=== PATIENT | male | born 1980 | race Caucasian/White ===

== ENCOUNTER 2017-01-08 15:13 | Emergency (ER) | payer OTHER ==
[2017-01-08 15:22] VITALS: RESP 16; O2SAT 97
--- NOTE | 2017-01-08 16:45 | CPEKG ---
Heart Rate: 72 RR Interval: 833 P-R Interval: 112 QRSD Interval: 98 QT Interval: 372 QTC Interval: 408 P [place]: 72 QRS [place]: 65 T Wave [place]: 52 EKG Severity - ABNORMAL ECG - EKG Impression: SINUS RHYTHM EKG Impression: LEFT VENTRICULAR HYPERTROPHY EKG Impression: ST ELEV, PROBABLE NORMAL EARLY REPOL PATTERN Electronically Signed By: Sagar Wick 08-Jan-2017 21:09:31
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
[2017-01-08 18:11] VITALS: BP 124/86; PULSE 66; TEMP 98.8
== END 2017-01-08 18:10 | disposition home or self-care (01) ==
DX: T75.4XXA Electrocution, initial encounter (principal); R20.2 Paresthesia of skin; F17.200 Nicotine dependence, unspecified, uncomplicated